=== PATIENT | male | born 2000 | race Caucasian/White ===

== ENCOUNTER 2021-08-08 07:54 | Emergency (ER) | payer OTHER ==
[~2021-08-08] VITALS: Ht 182.9 cm; Wt 72.7 kg
[2021-08-08 07:58] VITALS: TEMP 98.3
[2021-08-08] MEDS ORDERED: KEPPRA1000 MG PO (07:58)
[2021-08-08] MEDS ORDERED: LAMICTAL XR200 MG PO (07:58)
[2021-08-08 09:22] VITALS: BP 130/78; PULSE 84
== END 2021-08-08 09:22 | disposition home or self-care (01) ==
LOC: COL.ER 07:54
DX: F14.10 Cocaine abuse, uncomplicated (principal); R00.0 Tachycardia, unspecified; F17.200 Nicotine dependence, unspecified, uncomplicated
CPT/HCPCS: J2405; J7120

== ENCOUNTER 2022-01-07 03:58 | Emergency (ER) | payer OTHER ==
[~2022-01-07 03:58] MED LIST: KEPPRA1000 MG PO; LAMICTAL XR200 MG PO
[2022-01-07 04:07] VITALS: BP 152/111; PULSE 76; TEMP 98.6
== END 2022-01-07 04:48 | disposition home or self-care (01) ==
LOC: COL.ER 03:58
DX: S43.004A Unspecified dislocation of right shoulder joint, initial encounter (principal); F17.290 Nicotine dependence, other tobacco product, uncomplicated; X50.1XXA Overexertion from prolonged static or awkward postures, initial encounter

== ENCOUNTER 2022-06-11 15:07 | Emergency (ER) | payer OTHER ==
[~2022-06-11] VITALS: Ht 182.9 cm; Wt 77.3 kg
[2022-06-11 15:13] VITALS: TEMP 97.5
[2022-06-11 15:36] LABS: HEMATOCRIT 44.8 % (36.0-47.0); HEMOGLOBIN 15.6 g/dl (12.5-16.1); MEAN CELL VOLUME 89 fl (80.0-95.0); MEAN CORPUSCULAR HEMOGLOBIN 31 pg (26-32); MEAN CORPUSCULAR HGB CONC 35 g/dl (33.0-37.0); MEAN PLATELET VOLUME 8.8 fl (7.4-10.4); PLATELET COUNT 444 K/mm3 (130-400); RED BLOOD COUNT 5.06 M/mm3 (4.20-5.60); REDCELL DISTRIBUTION WIDTH-CV 11.7 % (11.5-14.5)
[2022-06-11 15:54] LABS: ALBUMIN 4.9 gm/dL (3.5-5.0); BILIRUBIN,TOTAL 0.4 mg/dL (0.2-1.2); CALCIUM 9.9 mg/dL (8.4-10.2); CREATININE, serum 1.14 mg/dL (0.72-1.25); POTASSIUM 4.1 mmol/L (3.5-4.5); TOTAL PROTEIN 8.5 gm/dL (6.2-8.1)
[2022-06-11 16:27] LABS: BAND 3 % (0-10); EOSINOPHIL 5 % (0-4); LYMPHOCYTE 42 % (20.0-51.0); NEUTROPHILS 43 % (42.0-75.2); PLATELET ESTIMATE INCREASED (NORMAL)
[2022-06-11 17:38] VITALS: BP 128/101; PULSE 68
== END 2022-06-11 17:50 | disposition home or self-care (01) ==
LOC: COL.ER 15:07
PROVIDERS: Emergency Medicine
DX: S43.004A Unspecified dislocation of right shoulder joint, initial encounter (principal); S00.512A Abrasion of oral cavity, initial encounter; G40.909 Epilepsy, unspecified, not intractable, without status epilepticus; Z28.310 Unvaccinated for COVID-19; X58.XXXA Exposure to other specified factors, initial encounter
CPT/HCPCS: J1885; J1953; J2405; J2704; J3010; J7030

== ENCOUNTER 2023-04-01 09:47 | Outpatient (RCR) | payer OTHER ==
[~2023-04-01 09:47] MED LIST changes: +LAMOTRIGINE
== END 2023-04-28 ==
LOC: WSPT
DX: Z98.890 Other specified postprocedural states (principal)

== ENCOUNTER 2023-05-16 18:39 | Emergency (ER) | payer OTHER ==
[~2023-05-16] VITALS: Ht 182.9 cm; Wt 72.7 kg
[2023-05-16 19:09] VITALS: TEMP 98
[2023-05-16 19:39] LABS: BASO # 0.1 K/mm3 (0.0-0.2); BASO % 0.5 % (0.0-2.0); EOS % 0.3 % (0.0-4.0); GRAN # 8.1 K/mm3 (1.4-6.5); GRAN % 78.5 % (42.2-75.2); HEMOGLOBIN 15.2 g/dl (13.5-18.0); LYMPH # 1.5 K/mm3 (1.2-3.4); LYMPH % 14.3 % (20.0-51.0); MEAN CELL VOLUME 91 fl (80.0-100.0); MEAN CORPUSCULAR HEMOGLOBIN 31 pg (27-31); MEAN CORPUSCULAR HGB CONC 35 g/dl (33.0-37.0); MEAN PLATELET VOLUME 8.6 fl (7.4-10.4); MONO # 0.6 K/mm3 (0.1-0.6); MONO % 5.9 % (1.7-9.3); PLATELET COUNT 344 K/mm3 (130-400); RED BLOOD COUNT 4.85 M/mm3 (4.20-5.60); REDCELL DISTRIBUTION WIDTH-CV 11.4 % (11.5-14.5)
[2023-05-16 19:59] LABS: ALBUMIN 4.9 gm/dL (3.5-5.0); BILIRUBIN,TOTAL 0.5 mg/dL (0.2-1.2); CALCIUM 9.7 mg/dL (8.4-10.2); CREATININE, serum 1.08 mg/dL (0.72-1.25); POTASSIUM 3.7 mmol/L (3.5-4.5); TOTAL PROTEIN 8.2 gm/dL (6.2-8.1)
[2023-05-16 20:15] VITALS: BP 128/80; PULSE 78
[2023-05-16 20:18] LABS: PROLACTIN 24.9 ng/mL (3.46-19.40)
== END 2023-05-16 20:40 | disposition home or self-care (01) ==
LOC: COL.ER 18:39
PROVIDERS: Emergency Medicine
DX: G40.909 Epilepsy, unspecified, not intractable, without status epilepticus (principal); E22.1 Hyperprolactinemia; Z79.899 Other long term (current) drug therapy
CPT/HCPCS: J1953; J2060; J7030

== ENCOUNTER 2023-07-23 00:44 | Observation (INO) | payer OTHER ==
[2023-07-23] VITALS (7 sets, daily range): BP systolic 110–127; BP diastolic 64–78; PULSE 51–78; TEMP 97.2–97.6
[~2023-07-23] VITALS: Ht 182.9 cm; Wt 75.0 kg
[~2023-07-23 00:44] MED LIST changes: +KEPPRA XR750 MG PO; -KEPPRA1000 MG PO
[2023-07-23] MEDS ORDERED: NS 1,000 ML IV ONE (01:15)
[2023-07-23] MEDS ORDERED: Ondansetron 4 MG/2 ML VIAL IV ONE (01:15)
[2023-07-23] MEDS ORDERED: Ketorolac 30 MG/ML VIAL IV ONE (01:15)
[2023-07-23 01:18] LABS: PH 6.5 (5.0-8.5); URINE APPEARANCE TURBID (CLEAR/HAZY); URINE BLOOD NEGATIVE (NEGATIVE); URINE COLOR YELLOW (YELLOW); URINE GLUCOSE NEGATIVE (NEGATIVE); URINE KETONE NEGATIVE (NEGATIVE); URINE NITRATE NEGATIVE (NEGATIVE); URINE PROTEIN(semi-quant) NEGATIVE (NEGATIVE); URINE UROBILINOGEN 0.2 E.U/dL (0.2-1.0)
[2023-07-23 01:20] LABS: BASO # 0.1 K/mm3 (0.0-0.2); BASO % 0.3 % (0.0-2.0); EOS # 0.1 K/mm3 (0.0-0.7); EOS % 0.5 % (0.0-4.0); GRAN # 14.7 K/mm3 (1.4-6.5); GRAN % 86.6 % (42.2-75.2); HEMATOCRIT 41.9 % (42.0-52.0); HEMOGLOBIN 14.9 g/dl (13.5-18.0); LYMPH # 1.1 K/mm3 (1.2-3.4); LYMPH % 6.6 % (20.0-51.0); MEAN CELL VOLUME 88 fl (80.0-100.0); MEAN CORPUSCULAR HEMOGLOBIN 31 pg (27-31); MEAN CORPUSCULAR HGB CONC 36 g/dl (33.0-37.0); MEAN PLATELET VOLUME 8.9 fl (7.4-10.4); MONO % 5.8 % (1.7-9.3); PLATELET COUNT 328 K/mm3 (130-400); RED BLOOD COUNT 4.76 M/mm3 (4.20-5.60); REDCELL DISTRIBUTION WIDTH-CV 11.2 % (11.5-14.5)
[2023-07-23 01:33] LABS: ALBUMIN 4.5 gm/dL (3.5-5.0); BILIRUBIN,TOTAL 0.5 mg/dL (0.2-1.2); C-REACTIVE PROTEIN 0.2 mg/dL (0.00-0.50); CALCIUM 9.9 mg/dL (8.4-10.2); CREATININE, serum 1.06 mg/dL (0.72-1.25); POTASSIUM 3.5 mmol/L (3.5-4.5); TOTAL PROTEIN 7.5 gm/dL (6.2-8.1)
[2023-07-23 01:44] LABS: COLLECTION METHOD CLEAN CATCH
[2023-07-23] MEDS ORDERED: Iohexol 300 - 100 ML VIAL IV ONE (01:50)
[2023-07-23] MEDS ORDERED: NS 1,000 ML IV SCH (04:00)
[2023-07-23] MEDS ORDERED: Ondansetron 4 MG/2 ML VIAL IV PRN ×3 (04:00→12:15)
[2023-07-23] MEDS ORDERED: HYDROmorphone 0.5 MG/0.5 ML SYRINGE IV PRN (04:00)
[2023-07-23] MEDS ORDERED: LEXAPRO20 MG PO (04:33)
[2023-07-23] MEDS ORDERED: ADDERALL XR 10M10 MG PO (04:34)
[2023-07-23] MEDS ORDERED: lamoTRIgine 100 MG TAB PO ONE (08:45)
[2023-07-23] MEDS ORDERED: LAMOTRIGINE PO ONE (08:45)
[2023-07-23] MEDS ORDERED: levETIRAcetam 500 MG TAB PO ONE (08:45)
[2023-07-23] MEDS ORDERED: LR 1,000 ML IV SCH (08:45)
[2023-07-23] MEDS ORDERED: levETIRAcetam 500 MG TAB PO SCH (09:00)
[2023-07-23] MEDS ORDERED: fentaNYL 50 MCG/ML 5 ML VIAL ONE (09:01)
[2023-07-23] MEDS ORDERED: Rocuronium 50 MG/5 ML Multi-Dose VIAL ONE (09:01)
[2023-07-23] MEDS ORDERED: Midazolam 2 MG/2 ML VIAL ONE (09:01)
--- NOTE | 2023-07-23 09:30 | NUR ---
PT UP TO THE FLOOR AT THIS TIME. STEADY GAIT TO BATHROOM. PAIN 5/10 IN LOWER LEFT ABDOMEN. FAMILY AT BEDSIDE. WILL CONTINUE TO MONITOR.
[2023-07-23] MEDS ORDERED: Lidocaine PF 2% (20 MG/ML) 5 ML VIAL ONE (11:15)
[2023-07-23] MEDS ORDERED: ROWEEPRA XR750 MG PO (11:15)
[2023-07-23] MEDS ORDERED: Ketorolac 30 MG/ML VIAL ONE (11:16)
[2023-07-23] MEDS ORDERED: LAMICTAL XR250 MG PO (11:16)
[2023-07-23] MEDS ORDERED: Glycopyrrolate 0.2 MG/ML 1 ML VIAL ONE (11:16)
[2023-07-23] MEDS ORDERED: Ondansetron 4 MG/2 ML VIAL ONE (11:16)
[2023-07-23] MEDS ORDERED: dexAMETHasone 10 MG/ML VIAL ONE (11:16)
[2023-07-23] MEDS ORDERED: fentaNYL 50 MCG/ML 2 ML VIAL IV PRN (11:30)
[2023-07-23] MEDS ORDERED: HYDROmorphone 2 MG/1 ML VIAL IV PRN (11:30)
[2023-07-23] MEDS ORDERED: droPERidol 2.5 MG/ML 2 ML VIAL IV PRN (11:30)
[2023-07-23] MEDS ORDERED: hydrALAZINE 20 MG/ML 1 ML VIAL IV PRN (11:30)
[2023-07-23] MEDS ORDERED: Promethazine 25 MG/ML 1 ML VIAL IV PRN (11:30)
[2023-07-23] MEDS ORDERED: NORCO 325 MG-51 TAB PO (12:09)
[2023-07-23] MEDS ORDERED: Morphine 4 MG/ML VIAL IV PRN (12:15)
--- NOTE | 2023-07-23 12:50 | NUR ---
PT BACK FROM PACU AT THIS TIME. A/O X4, TOLERATING ICE CHIPS WELL, PAIN 1/10 IN LAP SITES, BANDAIDS CLEAN, DRY, AND INTACT. FAMILY AT BEDSIDE. VITALS STABLE ON RA. WILL CONTINUE TO MONITOR.
--- NOTE | 2023-07-23 14:44 | NUR ---
PT TOLERATING GENERAL DIET, VOIDING IN TOILET, STEADY GAIT AROUND ROOM, NO N/V, PAIN 1/10 IN ABD. DISCHARGE INSTRUCTIONS PROVIDED TO PT AND FAMILY. DISCUSSED FOLLOW UP APPOINTMENTS, NEW MEDICATIONS, AND SIGNS OF INFECTION. NO QUESTIONS AT THIS TIME. IV REMOVED. PT AND BELONGINGS ESCORTED OUT OF BUILDING VIA WHEELCHAIR.
== END 2023-07-23 14:50 | disposition home or self-care (01) ==
LOC: COL.ER 00:44 → SURG 03:46
PROVIDERS: Nurse Practitioner; ADMIT Surgery
DX: K35.80 Unspecified acute appendicitis (principal); G40.909 Epilepsy, unspecified, not intractable, without status epilepticus; Z79.899 Other long term (current) drug therapy
CPT/HCPCS: G0378; J0690; J1100; J1170; J1885; J2250; J2405; J2543; J2704; J3010; J7030; Q9967